=== PATIENT | male | born 1960 | race Caucasian/White ===

== ENCOUNTER 2021-02-13 16:18 | Observation (INO) | payer MEDICARE ==
[2021-02-13] MEDS ORDERED: Ondansetron PF 4 MG/2 ML Vial IVP PRN (17:30)
[2021-02-13 17:32] VITALS: BMI 35.9
[2021-02-13] MEDS ORDERED: Nitroglycerin 0.4 MG TAB (25 Tab Bottle) SL PRN (17:50)
[2021-02-13] MEDS ORDERED: Dextrose 5% in Water 1,000 ML IV PRN (17:56)
[2021-02-13] MEDS ORDERED: HumaLOG 300 UNITS/3 ML VIAL SC PRN ×2 (17:56)
[2021-02-13] MEDS ORDERED: Dextrose 50% Abboject 50 ML SYRINGE SLOW IVP PRN (17:56)
[2021-02-13] MEDS ORDERED: Enoxaparin Sodium 40 MG/0.4 ML SYRINGE SC SCH (18:00)
[2021-02-13] MEDS: Sodium Chloride 0.9% 1,000 ML IV SCH (18:08)
[2021-02-13] MEDS ORDERED: FLU VACC QS2021-22(6MOS UP)/PF 60 MCG/0.5 ML SYRINGE IM ONE (18:45)
[2021-02-13 18:47] LABS: Troponin I Less than 0.010 ng/mL (< 0.028)
[2021-02-13] MEDS ORDERED: diphenhydrAMINE 25 MG CAP PO SCH (20:45)
[2021-02-13 20:47] LABS: Troponin I Less than 0.010 ng/mL (< 0.028)
[2021-02-13] MEDS ORDERED: Atorvastatin Calcium 20 MG TAB PO SCH (21:00)
[2021-02-14] MEDS ORDERED: Carvedilol 12.5 MG TAB PO SCH ×2 (00:45→08:00)
[2021-02-14 04:35] LABS: Cardiac Risk 6.4 (Less than 4.5)
[2021-02-14] MEDS: Sodium Chloride 0.9% 1,000 ML IV SCH (06:37)
[2021-02-14] MEDS ORDERED: Enoxaparin Sodium 40 MG/0.4 ML SYRINGE SC SCH (09:00)
[2021-02-14] MEDS ORDERED: Tamsulosin HCl 0.4 MG CAP PO SCH (09:00)
[2021-02-14] MEDS ORDERED: Aspirin 81 mg Enteric Coated Tablet PO SCH (09:00)
[2021-02-14 11:18] LABS: Hemoglobin A1c 7.8 % (4.0-6.0)
[2021-02-14] MEDS ORDERED: diphenhydrAMINE 25 MG CAP PO SCH (13:45)
[2021-02-14 16:21] VITALS: BP 133/74; TEMP 98.8
== END 2021-02-14 16:48 | disposition home or self-care (01) ==
LOC: CSHTELE 17:12
PROVIDERS: ADMIT Internal Medicine; ATTEND Physician Assistant Medical
DX: R07.9 Chest pain, unspecified (principal); F19.10 Other psychoactive substance abuse, uncomplicated; I25.10 Atherosclerotic heart disease of native coronary artery without angina pectoris; E11.9 Type 2 diabetes mellitus without complications; I10 Essential (primary) hypertension; N40.0 Benign prostatic hyperplasia without lower urinary tract symptoms; Z79.899 Other long term (current) drug therapy; Z79.82 Long term (current) use of aspirin; Z79.84 Long term (current) use of oral hypoglycemic drugs; F17.210 Nicotine dependence, cigarettes, uncomplicated
CPT/HCPCS: 80061; 82962 ×2; 83036; 84484; 93005; 96372; G0378 ×2; 36415; 36416; 93010; J1650; J1815; J7050

== ENCOUNTER 2021-04-09 05:01 | Observation (INO) | payer MEDICARE ==
[2021-04-09 05:13] VITALS: BMI 35.2
[2021-04-09] MEDS ORDERED: Acetaminophen 325 MG TAB PO PRN (05:17)
[2021-04-09] MEDS ORDERED: Zolpidem Tartrate 5 MG TAB PO PRN (05:17)
[2021-04-09] MEDS ORDERED: Dextrose 50% Abboject 50 ML SYRINGE SLOW IVP PRN (05:17)
[2021-04-09] MEDS ORDERED: Guaifenesin DM 100-10/5 ML UDCUP PO PRN (05:17)
[2021-04-09] MEDS ORDERED: Senokot S 8.6-50 MG TAB PO PRN (05:17)
[2021-04-09] MEDS ORDERED: Ondansetron PF 4 MG/2 ML Vial IVP PRN (05:17)
[2021-04-09] MEDS ORDERED: Calcium Carbonate 500 MG ChewTAB PO PRN (05:17)
[2021-04-09] MEDS ORDERED: Dextrose 5% in Water 1,000 ML IV PRN (05:17)
[2021-04-09] MEDS ORDERED: HumaLOG 300 UNITS/3 ML VIAL SC PRN (05:17)
[2021-04-09] MEDS ORDERED: Nitroglycerin 0.4 MG TAB (25 Tab Bottle) SL PRN (05:20)
[2021-04-09] MEDS ORDERED: Lorazepam 1 MG TAB PO SCH (05:30)
[2021-04-09] MEDS ORDERED: Sodium Chloride 0.9% 500 ML IV SCH (05:30)
[2021-04-09 06:02] LABS: Anion Gap 13 mmol/L (10-20); BUN (Urea Nitrogen) 22 mg/dL (8.4-25.7); Calc. Creatinine Clearance 116 mL/min (70-130); Calcium 8.9 mg/dL (7.8-10.44); Carbon Dioxide 22 mmol/L (23-31); Chloride 106 mmol/L (98-107); Glucose 199 mg/dL (80-115); Potassium 4.1 mmol/L (3.5-5.1); Sodium 137 mmol/L (136-145)
[2021-04-09] MEDS ORDERED: FLU VACC QS2021-22(6MOS UP)/PF 60 MCG/0.5 ML SYRINGE IM ONE (07:30)
[2021-04-09 07:50] VITALS: TEMP 98
[2021-04-09] MEDS ORDERED: Carvedilol 12.5 MG TAB PO SCH (08:00)
[2021-04-09] MEDS ORDERED: metFORMIN 500 MG TAB PO SCH (08:00)
[2021-04-09] MEDS ORDERED: Aspirin 81 mg Enteric Coated Tablet PO SCH (09:00)
[2021-04-09] MEDS ORDERED: Tamsulosin HCl 0.4 MG CAP PO SCH (09:00)
[2021-04-09] MEDS ORDERED: Enoxaparin Sodium 40 MG/0.4 ML SYRINGE SC SCH (09:00)
[2021-04-09 11:39] VITALS: BP 148/79
[2021-04-09] MEDS ORDERED: Atorvastatin Calcium 20 MG TAB PO SCH (21:00)
== END 2021-04-09 15:55 | disposition home or self-care (01) ==
LOC: CSHTELE 05:01
PROVIDERS: ADMIT Student in an Organized Health Care Education/Training Program; ATTEND Nurse Practitioner Family
DX: R07.89 Other chest pain (principal); F15.10 Other stimulant abuse, uncomplicated; I12.9 Hypertensive chronic kidney disease with stage 1 through stage 4 chronic kidney disease, or unspecified chronic kidney disease; N18.2 Chronic kidney disease, stage 2 (mild); N40.0 Benign prostatic hyperplasia without lower urinary tract symptoms; I25.10 Atherosclerotic heart disease of native coronary artery without angina pectoris; E11.65 Type 2 diabetes mellitus with hyperglycemia; Z20.822 Contact with and (suspected) exposure to COVID-19; E78.5 Hyperlipidemia, unspecified; I25.2 Old myocardial infarction; Z79.84 Long term (current) use of oral hypoglycemic drugs; F17.210 Nicotine dependence, cigarettes, uncomplicated; J44.9 Chronic obstructive pulmonary disease, unspecified; Z79.899 Other long term (current) drug therapy; Z79.82 Long term (current) use of aspirin
CPT/HCPCS: 36415; 36416; 93005; 93010; 96372; G0378; J1650; J1815; J7030

== ENCOUNTER 2021-06-05 20:51 | Emergency (ER) | payer MEDICARE ==
[2021-06-05 21:26] LABS: Hemoglobin 14.7 g/dL (13.5-17.5); Mean Corpuscular HGB CONC 34.8 g/dL (32.0-36.0); Mean Corpuscular Hemoglobin 29.4 pg (27.0-33.0); Mean Corpuscular Volume 84.4 fl (81.2-95.1); Mean Platelet Volume 11.1 fl (7.4-10.4); Platelet Count 256 10x3/uL (150-450); RBC Distribution Width 12.7 % (11.5-14.5); White Blood Cell (WBC) Count 20.4 10x3/uL (3.5-10.5)
[2021-06-05] MEDS ORDERED: Nitroglycerin 2% Ointment 1 INCH/1 GM Packet ONE (21:30)
[2021-06-05 21:42] LABS: Acetaminophen Less than 6.0 mcg/mL (10.0-30.0); Alcohol Less than 10 mg/dL (Less than 10); Lipase 28 U/L (8-78); Salicylate Less than 8.0 mg/dL (15.0-30.0)
[2021-06-05 21:44] LABS: ALT (SGPT) 28 U/L (8-55); AST (SGOT) 12 U/L (5-34); Albumin 3.5 g/dL (3.4-4.8); Alkaline Phosphatase 91 U/L (40-110); Anion Gap 13 mmol/L (10-20); BUN (Urea Nitrogen) 23 mg/dL (8.4-25.7); Bilirubin, Total 0.2 mg/dL (0.2-1.2); Calc. Creatinine Clearance 0 mL/min (70-130); Calcium 9.3 mg/dL (7.8-10.44); Carbon Dioxide 25 mmol/L (23-31); Chloride 97 mmol/L (98-107); Globulin 3.5 g/dL (2.4-3.5); Glucose 318 mg/dL (80-115); Potassium 4.5 mmol/L (3.5-5.1); Sodium 130 mmol/L (136-145)
[2021-06-05 22:06] LABS: MDiff Complete? YES
[2021-06-05 22:09] LABS: Band 3 % (5-11); Lymphocytes 10 % (21-51); Monocytes 8 % (0-10); Neutrophil 76 % (42-75); Reactive Lymphocytes 3 % (0-10)
[2021-06-05 22:32] LABS: Bilirubin Neg (Negative); Blood, Urine Negative (Negative); Clarity Clear (Clear); Glucose, Urine (Dipstick) >=1000 mg/dL (Negative); Ketone, Urine Negative (Negative); Leukocyte Negative (Negative); Nitrite Negative (Negative); Protein, Urine (Dipstick) 500 mg/dl (Neg-Trace); Urobilinogen Normal mg/dL (Less than 2)
[2021-06-05 22:39] LABS: Amphetamine Detected (NotDetected); Barbiturates Screen Not Detected (NotDetected); Benzodiazepine Screen Not Detected (NotDetected); Cocaine Metabolite Screen Not Detected (NotDetected); Methadone Not Detected (NotDetected); Methamphetamine Detected (NotDetected); Opiate Screen Detected (NotDetected); Oxycodone Screen Not Detected (NotDetected); Phencyclidine (PCP) Not Detected (NotDetected); THC/Cannabinoid Screen Detected (NotDetected); Tricyclic Screen Not Detected (NotDetected)
[2021-06-05 22:45] LABS: Bacteria/HPF Rare-Few HPF (None Seen); RBC/HPF 0-3 HPF (0-3); Squamous Epithelial 0-3 HPF (0-3); WBC/HPF 0-3 HPF (0-3)
== END 2021-06-06 00:39 | disposition home or self-care (01) ==
LOC: CSHERS 20:51
DX: R07.89 Other chest pain (principal); F15.10 Other stimulant abuse, uncomplicated; F11.10 Opioid abuse, uncomplicated; F12.10 Cannabis abuse, uncomplicated; I10 Essential (primary) hypertension; E11.9 Type 2 diabetes mellitus without complications; E78.2 Mixed hyperlipidemia; J45.909 Unspecified asthma, uncomplicated; F17.210 Nicotine dependence, cigarettes, uncomplicated
CPT/HCPCS: 36415; 71045; 80053; 80306; 80307; 81003; 81015; 83690; 84484; 85025; 93005; 94760

== ENCOUNTER 2021-11-24 05:39 | Inpatient (IN) | payer MEDICARE, OTHER ==
[2021-11-24 06:09] LABS: #Basophils 0.1 10x3/uL (0.0-0.2); #Eosinphils 0.3 10x3/uL (0.0-0.5); #Monocytes 1.3 10x3/uL (0.0-1.1); #Neutrophils 9.1 10x3/uL (1.5-8.4); %Basophils 0.5 % (0.0-2.0); %Lymphocytes 21.6 % (18.0-47.0); %Monocytes 9.2 % (0.0-10.0); %Neutrophils 66.3 % (40.0-75.0); Hemoglobin 14.2 g/dL (13.5-17.5); Mean Corpuscular HGB CONC 35.1 g/dL (32.0-36.0); Mean Corpuscular Hemoglobin 29.5 pg (27.0-33.0); Mean Corpuscular Volume 84.2 fl (81.2-95.1); Platelet Count 213 10x3/uL (150-450); RBC Distribution Width 12.7 % (11.5-14.5); Red Blood Cell (RBC) Count 4.81 10x6/uL (4.32-5.72); White Blood Cell (WBC) Count 13.8 10x3/uL (3.5-10.5)
[2021-11-24 06:16] LABS: ALT (SGPT) 42 U/L (8-55); AST (SGOT) 43 U/L (5-34); Albumin 4.2 g/dL (3.4-4.8); Alkaline Phosphatase 78 U/L (40-110); Anion Gap 20 mmol/L (10-20); BUN (Urea Nitrogen) 43 mg/dL (8.4-25.7); Bilirubin, Total 0.5 mg/dL (0.2-1.2); Calc. Creatinine Clearance 0 mL/min (70-130); Carbon Dioxide 17 mmol/L (23-31); Chloride 103 mmol/L (98-107); Estimated GFR 24; Globulin 3.2 g/dL (2.4-3.5); Glucose 217 mg/dL (80-115); Potassium 3.6 mmol/L (3.5-5.1); Protein, Total 7.4 g/dL (5.8-8.1); Sodium 136 mmol/L (136-145)
[2021-11-24 06:33] LABS: SARS-CoV-2 NAA Rapid Test Not Detected (NotDetected)
[2021-11-24] MEDS ORDERED: Heparin 1,000 UNITS/ML VIAL ONE (06:43)
[2021-11-24] MEDS ORDERED: Heparin 25,000 units/D5W 500 ML ONE (06:44)
[2021-11-24] MEDS ORDERED: Heparin 10,000 UNITS/ 10 ML VIAL SLOW IVP SCH ×3 (06:45→09:15)
[2021-11-24] MEDS ORDERED: Heparin 25,000 units/D5W 500 ML IV SCH (06:45)
[2021-11-24 06:46] LABS: PTT 25.1 sec (22.0-33.0); Prothrombin Time 10.9 sec (9.5-12.1)
[2021-11-24 06:47] LABS: CKMB 57.6 ng/mL (0-6.6)
[2021-11-24] MEDS ORDERED: Ondansetron PF 4 MG/2 ML Vial IVP PRN (07:58)
[2021-11-24] MEDS ORDERED: Acetaminophen 325 MG TAB PO PRN (07:58)
[2021-11-24] MEDS ORDERED: Ondansetron ODT 4 MG TAB PO PRN (07:58)
[2021-11-24] MEDS ORDERED: Heparin 25,000 units/D5W 500 ML IVPB SCH (08:15)
[2021-11-24 08:39] LABS: Hemoglobin 13.6 g/dL (13.5-17.5); Platelet Count 179 10x3/uL (150-450)
[2021-11-24 09:07] LABS: Troponin I 7.926 ng/mL (< 0.028)
[2021-11-24 09:11] VITALS: BMI 33.8
[2021-11-24] MEDS: Aspirin Chewable 81 MG TAB PO SCH (09:23)
[2021-11-24] MEDS ORDERED: Dextrose 50% Abboject 50 ML SYRINGE SLOW IVP PRN (09:54)
[2021-11-24] MEDS ORDERED: Dextrose 5% in Water 1,000 ML IV PRN (09:54)
[2021-11-24] MEDS: Sodium Chloride 0.9% 1,000 ML IV SCH (09:56)
[2021-11-24] MEDS ORDERED: Morphine 2 MG/ML VIAL ONE (10:08)
[2021-11-24] MEDS: Morphine 2 MG/ML VIAL SLOW IVP PRN ×2 (10:10→20:24)
[2021-11-24 11:56] LABS: Troponin I 8.967 ng/mL (< 0.028)
[2021-11-24] MEDS ORDERED: Nitroglycerin 2% Ointment 1 INCH/1 GM Packet TOP SCH (14:00)
[2021-11-24] MEDS: Nitroglycerin 2% Ointment 1 INCH/1 GM Packet TOP SCH ×2 (14:40→20:00)
[2021-11-24] MEDS: HumaLOG 300 UNITS/3 ML VIAL SC PRN ×2 (14:41→22:08)
[2021-11-24] MEDS: Nitroglycerin 0.4 MG TAB (25 Tab Bottle) SL PRN ×2 (19:12→19:17)
[2021-11-24 19:48] LABS: Troponin I 7.735 ng/mL (< 0.028)
[2021-11-24] MEDS ORDERED: Nitroglycerin 0.4 MG TAB (25 Tab Bottle) ONE (20:12)
[2021-11-24] MEDS ORDERED: Lorazepam 0.5 MG TAB PO SCH (21:15)
[2021-11-24 21:35] LABS: Amphetamine Detected (NotDetected); Barbiturates Screen Not Detected (NotDetected); Benzodiazepine Screen Not Detected (NotDetected); Cocaine Metabolite Screen Not Detected (NotDetected); Methadone Not Detected (NotDetected); Methamphetamine Detected (NotDetected); Opiate Screen Detected (NotDetected); Oxycodone Screen Not Detected (NotDetected); Phencyclidine (PCP) Not Detected (NotDetected); THC/Cannabinoid Screen Not Detected (NotDetected); Tricyclic Screen Not Detected (NotDetected)
[2021-11-24] MEDS: Metoprolol Tartrate 25 MG TAB PO SCH (22:07)
[2021-11-25 00:53] LABS: Troponin I 6.808 ng/mL (< 0.028)
[2021-11-25] MEDS: Sodium Chloride 0.9% 1,000 ML IV SCH ×2 (01:00→15:56)
[2021-11-25] MEDS: Heparin 25,000 units/D5W 500 ML IV SCH ×2 (02:44→21:22)
[2021-11-25] MEDS: Nitroglycerin 2% Ointment 1 INCH/1 GM Packet TOP SCH ×3 (04:15→21:17)
[2021-11-25 06:26] LABS: #Basophils 0.1 10x3/uL (0.0-0.2); #Eosinphils 0.3 10x3/uL (0.0-0.5); #Monocytes 0.5 10x3/uL (0.0-1.1); #Neutrophils 3.2 10x3/uL (1.5-8.4); %Basophils 0.9 % (0.0-2.0); %Eosinophils 4.4 % (0.0-6.0); %Lymphocytes 30.3 % (18.0-47.0); %Monocytes 8.7 % (0.0-10.0); %Neutrophils 55.5 % (40.0-75.0); Anion Gap 12 mmol/L (10-20); BUN (Urea Nitrogen) 32 mg/dL (8.4-25.7); Calc. Creatinine Clearance 81 mL/min (70-130); Calcium 8.1 mg/dL (7.8-10.44); Carbon Dioxide 21 mmol/L (23-31); Cardiac Risk 4.1 (Less than 4.5); Chloride 107 mmol/L (98-107); Cholesterol 111 mg/dl (< 200 Desired); Estimated GFR 57; Glucose 208 mg/dL (80-115); HDL Cholesterol 27 mg/dL (>60 Neg Risk); Hemoglobin 11.8 g/dL (13.5-17.5); LDL Cholesterol, Calculated 56 mg/dL; Mean Corpuscular HGB CONC 34.4 g/dL (32.0-36.0); Mean Corpuscular Hemoglobin 29.6 pg (27.0-33.0); Mean Platelet Volume 11.3 fl (7.4-10.4); Platelet Count 130 10x3/uL (150-450); Potassium 3.8 mmol/L (3.5-5.1); RBC Distribution Width 12.8 % (11.5-14.5); Red Blood Cell (RBC) Count 3.99 10x6/uL (4.32-5.72); Sodium 136 mmol/L (136-145); Triglycerides 141 mg/dL (Less than 150); White Blood Cell (WBC) Count 5.7 10x3/uL (3.5-10.5)
[2021-11-25] MEDS: Metoprolol Tartrate 25 MG TAB PO SCH ×2 (08:56→21:17)
[2021-11-25] MEDS: Aspirin Chewable 81 MG TAB PO SCH (08:56)
[2021-11-25] MEDS: HumaLOG 300 UNITS/3 ML VIAL SC PRN ×2 (09:03→18:57)
[2021-11-25] MEDS: Atorvastatin Calcium 40 MG TAB PO SCH (21:17)
[2021-11-26] MEDS: Nitroglycerin 2% Ointment 1 INCH/1 GM Packet TOP SCH ×2 (03:52→08:43)
[2021-11-26 04:08] LABS: Hemoglobin 11.9 g/dL (13.5-17.5); Platelet Count 134 10x3/uL (150-450)
[2021-11-26 04:09] LABS: #Basophils 0.1 10x3/uL (0.0-0.2); #Eosinphils 0.3 10x3/uL (0.0-0.5); #Monocytes 0.6 10x3/uL (0.0-1.1); #Neutrophils 3.5 10x3/uL (1.5-8.4); %Basophils 0.8 % (0.0-2.0); %Eosinophils 4.8 % (0.0-6.0); %Lymphocytes 28.1 % (18.0-47.0); %Monocytes 9.9 % (0.0-10.0); %Neutrophils 56.1 % (40.0-75.0); Hemoglobin 11.8 g/dL (13.5-17.5); Mean Corpuscular HGB CONC 34.1 g/dL (32.0-36.0); Mean Corpuscular Hemoglobin 29.5 pg (27.0-33.0); Mean Corpuscular Volume 86.5 fl (81.2-95.1); Mean Platelet Volume 11.6 fl (7.4-10.4); Platelet Count 130 10x3/uL (150-450); RBC Distribution Width 12.8 % (11.5-14.5); White Blood Cell (WBC) Count 6.3 10x3/uL (3.5-10.5)
[2021-11-26 04:26] LABS: Anion Gap 12 mmol/L (10-20); BUN (Urea Nitrogen) 24 mg/dL (8.4-25.7); Calc. Creatinine Clearance 92 mL/min (70-130); Calcium 8.5 mg/dL (7.8-10.44); Carbon Dioxide 23 mmol/L (23-31); Chloride 106 mmol/L (98-107); Estimated GFR 67; Glucose 202 mg/dL (80-115); Potassium 3.9 mmol/L (3.5-5.1); Sodium 137 mmol/L (136-145)
[2021-11-26] MEDS: Sodium Chloride 0.9% 1,000 ML IV SCH (05:11)
[2021-11-26] MEDS: HumaLOG 300 UNITS/3 ML VIAL SC PRN ×3 (06:05→20:57)
[2021-11-26 08:12] LABS: Hemoglobin 11.8 g/dL (13.5-17.5); Platelet Count 127 10x3/uL (150-450)
[2021-11-26] MEDS: Aspirin Chewable 81 MG TAB PO SCH (08:22)
[2021-11-26] MEDS: Metoprolol Tartrate 25 MG TAB PO SCH ×2 (08:23→23:46)
[2021-11-26] MEDS: Morphine 2 MG/ML VIAL SLOW IVP PRN (09:15)
[2021-11-26 09:59] LABS: Troponin I 3.867 ng/mL (< 0.028)
[2021-11-26] MEDS ORDERED: Furosemide 40 MG/4 ML VIAL SLOW IVP SCH (11:00)
[2021-11-26] MEDS: Atorvastatin Calcium 40 MG TAB PO SCH (20:57)
[2021-11-26] MEDS ORDERED: Melatonin 3 MG TAB PO SCH (23:45)
[2021-11-27] MEDS: HumaLOG 300 UNITS/3 ML VIAL SC PRN (05:39)
[2021-11-27 07:58] VITALS: BP 166/85; TEMP 97
[2021-11-27] MEDS: Aspirin Chewable 81 MG TAB PO SCH (08:46)
[2021-11-27] MEDS: Metoprolol Tartrate 25 MG TAB PO SCH (08:46)
== END 2021-11-27 11:51 | disposition home or self-care (01) | DRG 917 ==
LOC: CSHERS 05:39 → OBSVTOIN 08:55 → CSHERHOLD 08:55 → CSHTELE 13:24
PROVIDERS: ADMIT Internal Medicine; ATTEND Family Medicine
DX: T43.621A Poisoning by amphetamines, accidental (unintentional), initial encounter (principal); I21.A1 Myocardial infarction type 2; I50.33 Acute on chronic diastolic (congestive) heart failure; N17.9 Acute kidney failure, unspecified; I48.91 Unspecified atrial fibrillation; E11.9 Type 2 diabetes mellitus without complications; K21.9 Gastro-esophageal reflux disease without esophagitis; K74.60 Unspecified cirrhosis of liver; E78.5 Hyperlipidemia, unspecified; I25.10 Atherosclerotic heart disease of native coronary artery without angina pectoris; E78.00 Pure hypercholesterolemia, unspecified; J45.909 Unspecified asthma, uncomplicated; Z20.822 Contact with and (suspected) exposure to COVID-19; I11.0 Hypertensive heart disease with heart failure; I25.2 Old myocardial infarction; Z98.890 Other specified postprocedural states; Z79.84 Long term (current) use of oral hypoglycemic drugs; Z79.899 Other long term (current) drug therapy; Y92.9 Unspecified place or not applicable
CPT/HCPCS: 36415; 36416; 71045; 80048; 80053; 80061; 80306; 82553; 83880; 84484; 85014; 85018; 85025; 85049; 85610; 85730; 93005; 93010; 93306; 94760; 96374; J1644; J1815; J1940; J2270; J2405; J7050; U0002